=== PATIENT | female | born 1970 | race African-American/Black ===

== ENCOUNTER 2017-03-26 14:07 | Emergency (ER) | payer MEDICAID ==
[~2017-03-26] VITALS: Ht 157.5 cm; Wt 85.0 kg
[2017-03-26] MEDS ORDERED: KETOROLAC 30MG/ML VIAL IM ONE (14:45)
[2017-03-26 15:17] VITALS: BP 149/92
== END 2017-03-26 15:41 | disposition home or self-care (01) ==
LOC: ER 15:23
DX: S90.32XA Contusion of left foot, initial encounter (principal); I10 Essential (primary) hypertension; E05.90 Thyrotoxicosis, unspecified without thyrotoxic crisis or storm; X58.XXXA Exposure to other specified factors, initial encounter; Y93.89 Activity, other specified; Y92.89 Other specified places as the place of occurrence of the external cause; Y99.8 Other external cause status
CPT/HCPCS: 73630; 96372; 99284; J1885